=== PATIENT | female | born 1970 | race Caucasian/White ===

== ENCOUNTER 2017-04-07 20:01 | Emergency (ER) | payer OTHER ==
[2017-04-07 21:55] LABS: BILIRUBIN NEGATIVE (NEGATIVE); BLOOD NEGATIVE Ery/uL (NEGATIVE); CLARITY CLEAR (CLEAR); COLOR YELLOW (YELLOW); GLUCOSE (U) NORMAL (NORMAL); KETONE (U) TRACE mg/dL (NEGATIVE); LEUKOCYTES NEGATIVE Leu/uL (NEGATIVE); NITRITE NEGATIVE (NEGATIVE); PROTEIN NEGATIVE (NEGATIVE); SPECIFIC GRAVITY >=1.030 (1.001-1.030); UROBILINOGEN 0.2 mg/dL (0.2-1.0)
[2017-04-07 21:58] LABS: BASOPHIL 0.2 % (0-2); EOSINOPHIL 2.5 % (0-5); HCT 40.9 % (37.0-47.0); HGB 13.8 g/dl (12.5-16.0); MCH 29.8 pg (25.0-31.0); MCHC 33.7 g/dL (32.0-36.0); MCV 88.3 fL (78.0-100.0); MONOCYTE 8.4 % (0-12); NEUTROPHIL 61.9 % (41-80); PLT 205 K/uL (150-400); RBC 4.63 M/uL (4.20-5.40); RDW 12.8 % (11.5-14.0); WBC 10.2 K/uL (4.0-10.5)
[2017-04-07 22:03] LABS: CREATININE 0.8 mg/dL (0.5-1.0); POTASSIUM 3.6 mmol/L (3.5-5.1)
== END 2017-04-07 23:04 | disposition home or self-care (01) ==
LOC: FER 20:01
PROVIDERS: Nurse Practitioner Family
DX: R51 Headache (principal); R10.84 Generalized abdominal pain; R11.10 Vomiting, unspecified; I10 Essential (primary) hypertension; F41.9 Anxiety disorder, unspecified; Z87.42 Personal history of other diseases of the female genital tract; Z79.899 Other long term (current) drug therapy
CPT/HCPCS: 36415; 80048; 81003; 85025; 99284